=== PATIENT | male | born 1975 | race Caucasian/White ===

== ENCOUNTER 2024-08-23 15:30 | Outpatient (RCR) | payer OTHER, SELFPAY ==
--- NOTE | 2024-07-30 16:57 | HP.PTEVAL ---
Patient's Visit Information Visit Information Visit Information: LEANDRO WOLFE Jr. is a 48 year old M referred to Physical Therapy by HEENA Vuong with a diagnosis of STRAIN OF MUSCLE'S AND TENDON OF PSOTERIOR MUSCLE GROUP LOWER LEG. Date of Evaluation: 07/30/24 Physical Therapist: Leandro Sargent, PT, Cert MDT, OCS Visit Plan Frequency: 2-3x /Week Duration: 4 Months Plan: PT INTERVENTIONS MANUAL THERAPY /STM /STICK , ROM/FLEXABILITY CALF ,STRENGTHENING EX'S ANKLE STABILIZERS ,ECCENTRIC CALF AND MODALITIES Subjective Subjective: This 48 y/o male present to physical therapy with right calf strain. Patient was walking up hill felt popped in right calf on July 10. [facility] placed in CAM boot. Seen PA last July 24 and continue with CAM boot . Patient to return to [facility] August 07. Patient can remove boot with PT and sleeping /driving .No imaging and medication. Patient denies paresthesia/tingling - .Sleeping okay at night. Aggravating factors extended standing ,walking and stairs. Alleviating rest and ice Patient ecchymosis is improving. Patient condition affects QOL and function/job demands and gait. No pain and walking without boot. SOCIAL: single VOCATION: [employer] Pain Right Lower Extremity: Pain Intensity (Out of 10): 5 Pain Intensity Range: 10 Objective Objective: POSTURE: slight pes planus PALPATION: mild tender calf medial FLEXABILITY: G-S mod tightness GAIT: mild antalgic gait with right side without CAM ,( did not use CAM boot in PT and uses CAM boot at work all day) NEURO: denies paresthesia/tingling - AROM: dorsiflexion 0 degrees ,plantar flexion 65 ,inversion 10 degrees , MMT: ankle dorsiflexion 4/5 ,G-S 4/5 , pernonus 4/5 , posterior tibialis 4/5 PROPRIOCEPTION: SLS decreased Balance/Special Test Scores Lower Extremity Functional Score: 43 Goals Goal 1:: Patient to be I with HEP Goal Time Frame: 4-6 Weeks Goal 2:: Patient to normalize gait pattern Goal Time Frame: 4-6 Weeks Goal 3:: Patient to improve AROM dorsiflexion by 5 degrees to improve stairs and gait Goal Time Frame: 4-6 Weeks Goal 4:: Patient improve LFES score by 5 points to improve QOL and function Goal Time Frame: 4-6 Weeks Goal 5:: Patient be able to return to job demands and housework tasks with out limitations Goal Time Frame: 4-6 Weeks Rehabilitation Potential Physical Therapy Diagnosis: This patient right calf stain with pain with walking/standing extended period ,stairs and uses boot at work thus benefit from skilled PT Rehabilitation Potential: Good Anticipated Interventions Patient/Client Instruction: Educate patient on: Condition and Plan of Care For the Purpose of:: To decrease pain, To increase ROM, To improve nutrient delivery to tissue, To increase oxygenation perfusion, To improve muscle performance and motor function, To improve ability to perform ADL's, To increase tolerance to activity/condition/position, To improve ability of physical actions for home/community/work/leisure, To improve health of tissue, To decrease soft tissue restriction, To increase flexibility/ROM, To improve endurance and To improve tolerance to ADL's Therapeutic Exercise to Include: Strength training, Endurance training, Balance training, Postural training and Flexibilty training Comment: RIGHT ANKLE AND ECCENTRICS CALF For the Purpose of:: To decrease pain, To increase ROM, To improve muscle performance and motor function, To improve ability to perform ADL's, To increase tolerance to activity/condition/position, To improve ability of physical actions for home/community/work/leisure, To improve health of tissue, To decrease soft tissue restriction, To increase flexibility/ROM and To improve balance Manual Therapy Techniques to Include: Mobilization and Soft tissue mobilization For the Purpose of:: To decrease pain, To increase ROM, To improve muscle performance and motor function, To improve ability to perform ADL's, To increase tolerance to activity/condition/position, To improve performance and independence with ADL's, To improve ability of physical actions for home/community/work/leisure, To improve health of tissue, To decrease soft tissue restriction, To increase flexibility/ROM, To improve balance and To improve tolerance to ADL's TENS: Yes IF ES: Yes Cryotherapy (ice pack, ice massage): Yes Thermo therapy (hot pack): Yes Ultrasound (thermal/non thermal): Yes For the Purpose of:: To decrease pain, To improve nutrient delivery to tissue, To increase oxygenation perfusion, To improve health of tissue, To decrease soft tissue restriction and To increase flexibility/ROM Text: Thank you for the opportunity to evaluate your patient. For Medicare and Medicare HMO plans, please review the plan of care and approve it. It will need to be FAXED BACK to us at [phone] for Medicare purposes. For Medicare only, by signing this I certify the plan of care. Please let me know if there are questions or concerns regarding this plan of care. Physician Signature: Date:
--- NOTE | 2024-08-23 16:10 | HP.PTDCSUM ---
Discharge Summary D/C summary: It has been my pleasure to treat LEANDRO WOLFE . referred by HEENA Vuong, with the diagnosis of STRAIN OF MUSCLE'S AND TENDON OF PSOTERIOR MUSCLE GROUP LOWER LEG for a total of 8 visit(s). Discharge Date: Please see the following information for a summary of their discharge status. Subjective Subjective: Doing back to normal Seen DR full work duty and no restriction Pain Right Lower Extremity: Pain Intensity (Out of 10): 0 Overall Improvement % Improvement: 100 Objective Objective/Function: POSTURE: slight pes planus PALPATION: mild tender calf medial FLEXABILITY: G-S mod tightness GAIT: mild antalgic gait with right side without CAM ,( did not use CAM boot in PT and uses CAM boot at work all day) NEURO: denies paresthesia/tingling - AROM: dorsiflexion 0 degrees ,plantar flexion 65 ,inversion 10 degrees , MMT: ankle dorsiflexion 4/5 ,G-S 4/5 , pernonus 4/5 , posterior tibialis 4/5 PROPRIOCEPTION: SLS decreased Goals Goal 1:: Patient to be I with HEP Goal Progress: Goal Met Goal 2:: Patient to normalize gait pattern Goal Progress: Goal Met Goal 3:: Patient to improve AROM dorsiflexion by 5 degrees to improve stairs and gait Goal Progress: Goal Met Goal 4:: Patient improve LFES score by 5 points to improve QOL and function Goal Progress: Goal Met Goal 5:: Patient be able to return to job demands and housework tasks with out limitations Goal Progress: Goal Met Plan Plan: D/C D/C Information d/c sentence: If there are questions or concerns regarding this patient's physical therapy, please feel free to call me at [phone]. Thank you for the referral of this patient. Sincerely, Leandro Sargent, PT, Cert MDT, OCS Balance/Gait/Functional tests Balance/Special Test Scores Lower Extremity Functional Score: 64 Improvement % Improvement: 100
== END 2024-08-23 19:00 | disposition home or self-care (01) ==
LOC: PT 15:30
PROVIDERS: PCP Family Medicine; Referring Provider Physician Assistant; Visit Provider Physician Assistant
DX: S86.111D Strain of other muscle(s) and tendon(s) of posterior muscle group at lower leg level, right leg, subsequent encounter (principal)
CPT/HCPCS: 97110; 97140; 97162; 97530